=== PATIENT | male | born 2000 | race Caucasian/White ===

== ENCOUNTER 2024-01-20 15:34 | Emergency (ER) | payer OTHER ==
[2024-01-20 18:34] VITALS: BP 134/82; TEMP 97.4; O2SAT 100
== END 2024-01-20 18:35 | disposition home or self-care (01) ==
LOC: M ED 15:34
DX: T17.900A Unspecified foreign body in respiratory tract, part unspecified causing asphyxiation, initial encounter (principal); F10.10 Alcohol abuse, uncomplicated

== ENCOUNTER 2025-01-04 00:36 | Emergency (ER) | payer OTHER ==
[~2025-01-04] VITALS: Ht 175.3 cm; Wt 85.4 kg
[2025-01-04 03:39] LABS: BASO % 0.6 % (0.0-1.0); EOS # 0.1 10^3/uL (0.0-0.5); EOS % 0.8 % (0.0-3.0); HEMATOCRIT 44.5 % (42.0-52.0); HEMOGLOBIN 14.4 g/dl (13.5-17.5); LYMPH # 2.8 10^3/uL (1.5-5.0); LYMPH % 38.9 % (24.0-44.0); MEAN CORPUSCULAR HEMOGLOBIN 29.9 pg (27.0-33.0); MEAN CORPUSCULAR HGB CONC 32.4 g/dl (32.0-36.5); MEAN CORPUSCULAR VOLUME 92.5 fl (80.0-96.0); MONO # 0.4 10^3/uL (0.0-0.8); MONO % 6.1 % (2.0-8.0); NEUTROPHILS # 3.8 10^3/uL (1.5-8.5); NEUTROPHILS % 53.3 % (36.0-66.0); PLATELET COUNT, AUTOMATED 191 10^3/uL (150-450); RED BLOOD COUNT 4.81 10^6/uL (4.30-6.10); WHITE BLOOD COUNT 7.2 10^3/uL (4.0-10.0)
[2025-01-04 03:50] LABS: CALCIUM LEVEL 9.7 MG/DL (8.5-10.1); CREATININE FOR GFR 1.28 MG/DL (0.70-1.30); GLOMERULAR FILTRATION RATE 79.7 (>60); POTASSIUM SERUM 4.2 MMOL/L (3.5-5.1)
[2025-01-04 03:51] LABS: ALBUMIN 4.3 G/DL (3.2-5.2); BILIRUBIN,DIRECT 0.1 MG/DL (<0.4); BILIRUBIN,TOTAL 0.3 MG/DL (0.3-1.2); TOTAL PROTEIN 7.1 G/DL (5.7-8.2)
[2025-01-04] MEDS ORDERED: ISOVUE-370 76% 100ML VIAL As Ordered ONE (06:44)
[2025-01-04 08:00] VITALS: BP 124/84; TEMP 97.6; O2SAT 100
== END 2025-01-04 08:24 | disposition home or self-care (01) ==
LOC: M ED 00:36
DX: L03.316 Cellulitis of umbilicus (principal)
CPT/HCPCS: 74177; 80048; 80076; 83690; 85025; 87070; 87077; 87186; 99284; Q9967